=== PATIENT | male | born 1995 | race Caucasian/White ===

== ENCOUNTER 2019-04-07 10:46 | Observation (INO) ==
[~2019-04-07 10:46] MED LIST: NS 1,000 ML IV ONE
--- NOTE | 2019-04-07 10:57 | PROVIDER DOCUMENTATION ---
This chart was entered by Maribeth Bender Scribe, acting as scribe for Carl Jaime MD. [id number] Abuse/Overdose - General Chief Complaint: Overdose Stated Complaint: Overdose Time Seen by Provider: 04/07/19 10:33 Source: patient, EMS Allergies/Adverse Reactions: Allergies Allergy/AdvReac Type Severity Reaction Status Date / Time cephalexin monohydrate * Allergy Severe ANAPHYLAXIS Verified 08/29/13 21:33 [From Keflex] Penicillins Allergy Severe ANAPHYLAXIS Verified 08/29/13 21:32 Home Medications: Home Medication List Medication Instructions Recorded Confirmed Last Taken Type Azithromycin [Zithromax] 1 gm PO DAILY 08/29/13 08/29/13 08/29/13 07:00 History 1po - History of Present Illness-Drug/Alcohol Nature of Presenting Problem: 23 y/o male presents to the ED via EMS after overdose of Somonex, benadryl, and alcohol. EMS states the patient took approximately 40 Somonex which is an OTC sleep aid as well as unknown amount of Bendryl and drank approximately 1/2 pint of whiskey according to family but time of consumption is uncertain and the patient did write a note which which has tones of a suicide note. EMS states the patient was tachycardic and figity but not combative. The patient denies SI and states he simply could not sleep last night but then on further questioning states it was a combination of could not sleep and suicidal ideation. The patient is alert and oriented times three but confused easily. The patient does state he has a 2 year old child and is in a custody owusu. This episode of drinking or use began:: unsure Situational problems related to:: reports: other (custody owusu for child) Psychiatric Complaints: reports: insomnia, suicidal ideation. denies: homicidal thoughts Associated Symptoms: reports: other (dry mouth). denies: chest pain, diarrhea, dizziness, fever/chills, headaches, nausea, shortness of breath, vomiting Any injuries associated with this episode of intoxication?: No Similar Symptoms Previously?: No Recently seen or treated by another doctor?: No - Overdose Intentional drug overdose?: Yes List substance(s) ingested.: Somonex, benadryl, whiskey How did the ingestion/other suicidal act come to attention?: family called 911 Review of Systems - Adult - REVIEW OF SYSTEMS - ADULT Constitutional: denies: chills, fever, night sweats Eyes: reports: no symptoms reported Ears, Nose, Mouth & Throat: reports: no symptoms reported Cardiovascular: denies: chest pain, palpitations, syncope Respiratory: denies: hemoptysis, shortness of breath, wheezing Gastrointestinal: denies: diarrhea, nausea, vomiting Genitourinary: reports: no symptoms reported Musculoskeletal: reports: no symptoms reported Integumentary: reports: no symptoms reported Neurological: denies: dizziness/vertigo, headache/migraines, syncope Psychiatric: reports: insomnia, suicidal thoughts. denies: emotional problems Endocrine: reports: no symptoms reported Hematologic/Lymphatic: reports: no symptoms reported Allergic/Immunologic: reports: no symptoms reported All Other Systems: Reviewed and Negative Past History - Adult - PAST MEDICAL HISTORY-ADULT Review of Records: reports: Old Records Reviewed, Nursing Assessment Review, Medications Reviewed - IMMUNIZATION STATUS Childhood Immunizations: See Nurse Assessment Flu Vaccine: See Nurse Assessment - SOCIAL HISTORY Substance Use: alcohol Living Situation: family Physical Exam-General - PHYSICAL EXAM-ADULT Initial Vital Signs Reviewed: Yes - CONSTITUTIONAL General Appearance: alert - HEAD, EARS, NOSE, MOUTH & THROAT HENMT: normocephalic/atraumatic. negative: moist mucous membranes - NECK Neck: full range of motion, supple - RESPIRATORY Respiratory: lungs clear, normal breath sounds. negative: rales, rhonchi, wheezing - CARDIOVASCULAR Cardiovascular: no edema, no gallop, no murmur, tachycardia - GASTROINTESTINAL (ABDOMEN) Abdominal Exam: non tender, soft, other (midline surgical scar). negative: distended, guarding, rebound - MUSCULOSKELETAL Extremity: normal range of motion, non-tender, normal gait, no pedal edema, normal capillary refill. negative: pulse deficit - SKIN Integumentary: normal color, warm/dry - NEUROLOGIC Neurologic: grossly normal - PSYCHIATRIC Psych/Mental Status: oriented x 3 Progress - PLAN OF CARE/RESULTS Progress/Plan/Lab Results: Vital Signs - 8 hr 04/07/19 10:35 Temperature 97.8 F Pulse Rate 147 H Respiratory Rate 20 Blood Pressure 157/091 O2 Sat by Pulse Oximetry 97 Laboratory Results - last 24 hr 04/07/19 04/07/19 04/07/19 10:47 10:47 10:47 WBC 8.88 RBC 4.88 Hgb 15.3 Hct 43.2 MCV 88.5 MCH 31.4 H MCHC 35.4 RDW Std Deviation 12.8 Plt Count 289 MPV 10.2 Immature Gran % (Auto) 0.2 Neut % (Auto) 52.7 Lymph % (Auto) 32.9 [place] % (Auto) 12.0 H Eos % (Auto) 1.9 Baso % (Auto) 0.3 Immature Gran # (Auto) 0.02 Neut # (Auto) 4.67 Lymph # (Auto) 2.92 [place] # (Auto) 1.07 H Eos # (Auto) 0.17 Baso # (Auto) 0.03 Sodium 145 Potassium 3.4 L Chloride 104 Carbon Dioxide 23 L Anion Gap 18 BUN 5 L Creatinine 1.0 Estimated GFR/1.73 m2 > 60 BUN/Creatinine Ratio 5 Glucose 122 H Calculated Osmolality 287 Calcium 9.6 Total Bilirubin 0.40 AST 16 ALT 20 Alkaline Phosphatase 88 Total Protein 8.0 Albumin 5.0 Globulin 3.0 Albumin/Globulin Ratio 2.0 Vitamin B12 505 Salicylates < 3.00 L Acetaminophen < 1.2 L Plasma/Serum Ethyl Alc 04/07/19 10:47 WBC RBC Hgb Hct MCV MCH MCHC RDW Std Deviation Plt Count MPV Immature Gran % (Auto) Neut % (Auto) Lymph % (Auto) [place] % (Auto) Eos % (Auto) Baso % (Auto) Immature Gran # (Auto) Neut # (Auto) Lymph # (Auto) [place] # (Auto) Eos # (Auto) Baso # (Auto) Sodium Potassium Chloride Carbon Dioxide Anion Gap BUN Creatinine Estimated GFR/1.73 m2 BUN/Creatinine Ratio Glucose Calculated Osmolality Calcium Total Bilirubin AST ALT Alkaline Phosphatase Total Protein Albumin Globulin Albumin/Globulin Ratio Vitamin B12 Salicylates Acetaminophen Plasma/Serum Ethyl Alc 45 H Orders Category Date Time Status Cardiac Monitoring DIRECTED Care 04/07/19 10:42 Active Saline Loc NOW Care 04/07/19 10:43 Completed ACETAMINOPHEN [TDM] Stat Lab 04/07/19 10:47 Completed ALCOHOL BLOOD Stat Lab 04/07/19 10:47 Completed CBC WITH ELECTRONIC DIFF [HEME] Stat Lab 04/07/19 10:47 Completed COMPREHENSIVE METABOLIC PANEL [CHEM] Stat Lab 04/07/19 10:47 Completed FREE T4 Stat Lab 04/07/19 10:47 Results SALICYLATES [TDM] Stat Lab 04/07/19 10:47 Completed TSH Stat Lab 04/07/19 10:[address] W/POSS RFLX CULT [URINALYSIS] Stat Lab 04/07/19 10:40 Uncollected VITAMIN B12 Stat Lab 04/07/19 10:47 Results 0.9% Sodium Chloride Inj [Ns] 1,000 ml Med 04/07/19 10:46 Discontinued IV 999 mls/hr Pulse Oximetry Stat Oth 04/07/19 10:42 Active EKG [EKG] Stat Ther 04/07/19 10:42 Ordered Result Diagrams: 04/07/19 10:47 04/07/19 10:47 - EKG 1 Time of EKG reading by physician:: 11:06 EKG Read and Signed by:: Carl Jaime EKG Interpretation (*Must complete 3 of following elements*): Abnormal Rate: 124 Rhythm: sinus tachycardia Comments: nonspecific T wave abnormality Departure - Departure Date of Disposition Decision: 04/07/19 Time of Disposition Decision: 11:55 DIAGNOSIS: Suicide attempt Diphenhydramine overdose Qualifiers: Encounter type: initial encounter Injury intent: intentional self-harm Qualified Code(s): T45.0X2A - Poisoning by antiallergic and antiemetic drugs, intentional self-harm, initial encounter Disposition: ADMITTED INPATIENT 09 Certified Medical Emergency: Emergent Condition: Stable - Critical Care Note This patient required my direct & personal management of CC.: Yes Total Time (mins): 61 Critical Care Statement: This patient required my direct personal management to treat or rule out processes, the absence of which, could potentiallly result in sudden, clinically significant life or limb threatening deterioration. Attestation - Physician/ NICOLAS Attestation Patient care was provided by Advanced Practice Provider:: No The physician spent face to face time with patient:: Yes Advanced Practice Provider documentation review:: Supervising physician onsite and consulted in the evaluation and care of this patient. The physician did have a face to face encounter with the patient. This chart was documented by the indicated scribe, (Maribeth Bender, Marit[place]) and accurately reflects the services I performed and decisions made by me, Carl Jaime MD, as attested by the provider's signature.
[2019-04-07 11:06] LABS: BASO# 0.03 X1000 (0.0-0.2); BASO% 0.3 % (0.0-0.8); EOS# 0.17 X1000 (0.0-0.7); EOS% 1.9 % (0.0-10.0); HEMATOCRIT 43.2 % (42.0-52.0); HEMOGLOBIN 15.3 g/dL (14.0-18.0); IMM GRAN# 0.02 X1000 (0.0-0.04); IMM GRAN% 0.2 % (0.0-0.5); LYMPH# 2.92 X1000 (1.2-3.4); LYMPH% 32.9 % (20.5-51.1); MCH 31.4 PG (27-31); MCHC 35.4 g/dL (33-37); MCV 88.5 FL (81-99); MONO# 1.07 X1000 (0.11-0.59); MPV 10.2 FL (7.4-10.4); NEUT# 4.67 X1000 (1.4-6.5); NEUT% 52.7 % (42.2-75.2); PLT 289 X1000 (130-400); RBC 4.88 XMIL (4.7-6.1); RDW 12.8 % (11.5-14.5); WBC 8.88 X1000 (4.8-10.8)
[2019-04-07 11:30] LABS: ACETAMINOPHEN < 1.2 ug/mL (10-30); AGAP 18; ALKALINE PHOSPHATASE 88 U/L (32-122); BUN 5 mg/dL (8-22); CALCIUM 9.6 mg/dL (8.8-10.2); CHLORIDE 104 mmol/L (98-107); COSMO 287; ESTIMATED GFR > 60; GLUCOSE 122 mg/dL (70-104); GOT 16 U/L (10-34); GPT 20 U/L (10-44); POTASSIUM 3.4 mmol/L (3.5-5.1); SALICYLATES < 3.00 mg/dL (3-10); SODIUM 145 mmol/L (136-145); TCO2 23 mmol/L (25-35)
[2019-04-07 12:03] LABS: FREE T4 1.91 ng/dL (0.93-1.70); TSH 6.62 uIUmL (0.27-4.20)
--- NOTE | 2019-04-07 12:47 | EKG Report ---
Test Performed on : 04/07/2019 11:05:17 AM Test Reason : pain Blood Pressure : / mmHG Vent. Rate : 124 BPM Atrial Rate : 124 BPM P-R Int : 158 ms QRS Dur : 080 ms QT Int : 302 ms P-R-T Axes : 058 029 049 degrees QTc Int : 433 ms Sinus tachycardia. Nonspecific T wave abnormality Abnormal ECG No previous ECGs available Unconfirmed Result
[2019-04-07 13:32] LABS: BILIRUBIN URINE NEGATIVE (NEGATIVE); BLOOD URINE 2+ (NEGATIVE); CLARITY CLEAR (CLEAR); COLOR YELLOW; GLUCOSE URINE NEGATIVE (NEGATIVE); KETONE URINE NEGATIVE (NEGATIVE); LEUKOCYTES URINE NEGATIVE (NEGATIVE); NITRITE URINE NEGATIVE (NEGATIVE); PH URINE 6.5; PROTEIN URINE NEGATIVE (NEGATIVE); UROBILINOGEN URINE NORMAL
[2019-04-07 13:38] LABS: URINE BACTERIA 1+ /HFP; URINE EPITHELIAL CELLS <10 /HPF (<10); URINE RBC <10 /HPF (<10)
[2019-04-07 13:39] LABS: URINE SOURCE CLEAN CATCH
[2019-04-07 13:47] LABS: UR AMPHETAMINES QUAL NONE DETECTED (NONE DETECT); UR BARBITUATES QUAL PRESUMPTIVE POSITIVE (NONE DETECT); UR BENZODIAZEPIN QUAL NONE DETECTED (NONE DETECT); UR CANNABINOIDS QUAL NONE DETECTED (NONE DETECT); UR COCAINE QUAL NONE DETECTED (NONE DETECT); UR METHADONE QUAL NONE DETECTED (NONE DETECT); UR METHAMPHETAMINE QUAL NONE DETECTED (NONE DETECT); UR OPIATES QUAL NONE DETECTED (NONE DETECT); UR OXYCODONE QUAL NONE DETECTED (NONE DETECT); UR PCP QUAL NONE DETECTED (NONE DETECT); UR PROPOXYPHENE QUAL NONE DETECTED (NONE DETECT); UR TCA QUAL NONE DETECTED (NONE DETECT)
--- NOTE | 2019-04-07 17:08 | HISTORY AND PHYSICAL ---
CHIEF COMPLAINT: Suicide attempt overdose. HISTORY OF PRESENT ILLNESS: Patient is a 23-year-old male who presented to the emergency department after having an overdose with [*]Benadryl and probably alcohol. Patient unfortunately did write a suicide note. He is undergoing a custody owusu and divorce. The patient apparently in the ER at one point had denied suicide intent, although his note would suggest otherwise. ALLERGIES: Penicillin. MEDICATIONS: No prescription medications. PAST MEDICAL HISTORY: He has no chronic active medical problems. SOCIAL HISTORY: Patient does drink. Does not smoke or use other illicit substances. REVIEW OF SYSTEMS: Unobtainable on my exam due to patient is confused, frequently answering questions that were not asked. FAMILY HISTORY: Noncontributory. PHYSICAL EXAMINATION: VITAL SIGNS: Reviewed. GENERAL: Patient is awake and alert. However, he is disoriented, likely due to the substances that he took. He is in no respiratory distress. HEENT: Normocephalic. NECK: Supple. CARDIOVASCULAR: Regular rate. No murmurs. CHEST: Clear and nonlabored. ABDOMEN: Soft and nondistended. EXTREMITIES: Moves all extremities. NEUROLOGIC: No obvious focal deficits although patient is confused and disoriented, does not follow commands. VITAL SIGNS: Currently, blood pressure is elevated at 157/91, temperature 97 degrees, pulse 140s and respiratory 20. ASSESSMENT: 1. Supraventricular tachycardia. 2. Hypertension. 3. Intentional drug overdose with likely suicide implications. 4. Hyperglycemia. 5. Hypokalemia. PLAN: We will continue patient in the hospital, and place him in the ICU. We will follow poison control's recommendations. Further orders as needed. cc: Jeffrey Emery MD
[2019-04-07] MEDS: NICODERM PATCH TD PRN (21:01)
[2019-04-08 05:41] LABS: HEMATOCRIT 38.9 % (42.0-52.0); HEMOGLOBIN 13.1 g/dL (14.0-18.0); MCH 30.8 PG (27-31); MCHC 33.7 g/dL (33-37); MCV 91.5 FL (81-99); MPV 10.3 FL (7.4-10.4); RBC 4.25 XMIL (4.7-6.1); WBC 7.52 X1000 (4.8-10.8)
[2019-04-08 06:07] LABS: AGAP 10; ALBUMIN 3.9 g/dL (3.5-5.0); ALKALINE PHOSPHATASE 73 U/L (32-122); BUN 8 mg/dL (8-22); CALCIUM 8.6 mg/dL (8.8-10.2); CHLORIDE 103 mmol/L (98-107); COSMO 277; CREATININE 0.9 mg/dL (0.7-1.2); ESTIMATED GFR > 60; GLUCOSE 88 mg/dL (70-104); GOT 15 U/L (10-34); GPT 18 U/L (10-44); MAGNESIUM 1.7 mg/dL (1.5-2.7); POTASSIUM 3.6 mmol/L (3.5-5.1); SODIUM 140 mmol/L (136-145); TCO2 27 mmol/L (25-35); TOTAL PROTEIN 6.6 g/dL (6.3-8.3)
[2019-04-08] MEDS: NICODERM PATCH TD PRN (10:53)
--- NOTE | 2019-04-08 11:12 | EKG Report ---
Test Performed on : 04/08/2019 07:20:24 AM Test Reason : STAT Blood Pressure : / mmHG Vent. Rate : 061 BPM Atrial Rate : 061 BPM P-R Int : 156 ms QRS Dur : 090 ms QT Int : 398 ms P-R-T Axes : -22 076 073 degrees QTc Int : 400 ms Normal sinus rhythm. with sinus arrhythmia. Normal ECG When compared with ECG of 07-APR-2019 11:05, (Unconfirmed) Vent. rate has decreased BY [address] elevation now present in Lateral leads Nonspecific T wave abnormality no longer evident in Inferior leads Nonspecific T wave abnormality no longer evident in Lateral leads Unconfirmed Result
[2019-04-08 12:15] VITALS: BP 104/54
--- NOTE | 2019-04-08 19:25 | PROGRESS NOTE ---
DATE: 04/08/2019 SUBJECTIVE: Patient states that he is feeling better. He denies any current suicidal intentions, although seems reluctant to state that he will not do that again. PHYSICAL EXAMINATION: Vital Signs: Temp 97.5, pulse 65, respiratory rate 18, BP 102/56. General: Patient is awake, alert, currently in no distress. He is pleasant. He is much more oriented than he was on admission. HEENT: Normocephalic. Neck: Supple. Cardiovascular: Regular rate. Chest: Clear. Abdomen: Soft, nondistended. Extremities: Moves all extremities. ASSESSMENT: 1. Supraventricular tachycardia, resolved. 2. Hypertension, resolved. 3. Intentional drug overdose. All of his symptoms appear to have resolved. 4. Hypokalemia, resolved. 5. Hypertension, resolved. PLAN: We will continue patient in the hospital until he is cleared medically by [facility]. I certainly feel as though Mr. Olivia needs to be transferred to [facility] given that he had written what appears to be a suicide note and his stressors have not actually changed. cc: Jeffrey Emery MD
--- NOTE | 2019-04-08 19:30 | DISCHARGE SUMMARY ---
ADMISSION DATE: 04/07/2019 DISCHARGE DATE: 04/08/2019 DIAGNOSES: 1. Supraventricular tachycardia resolved. 2. Hypertension. 3. Intentional drug overdose with likely suicide implications. 4. Hyperglycemia. 5. Hypokalemia. HOSPITAL COURSE: Mr. Olivia presented to the emergency room after having an overdose with Benadryl and probably alcohol. He also wrote a suicide note. He was admitted to ICU and monitored. Thankfully he had no complications. We did follow poison control's recommendations. Once medically cleared he was evaluated by [facility] who felt that the patient did meet criteria for inpatient care. A bed was found at [facility] and the patient was discharged at [facility] and the patient left with [facility] approximately 3:40 in stable condition. DISCHARGE MEDICATIONS: The patient had p.r.n. orders for hydroxyzine 25 mg p.o. t.i.d. anxiety, Motrin 600 mg p.o. q.6 hours p.r.n., milk of magnesia 30 mL p.o. p.r.n. constipation, a NicoDerm patch 21 mg transdermal daily, trazodone 50 mg p.o. at bedtime p.r.n. sleep, Maalox Plus liquid 30 mL p.o. q.3 hours p.r.n. indigestion, clonidine 0.1 mg p.o. q.4 hours p.r.n. systolic blood pressure greater than 170 or diastolic blood pressure greater than 105 both pressures being manual. [*]in stable condition with family members present. He is being discharged in transfer to [facility] in stable condition. TIME SPENT: Greater than 30 minutes . Dictated by KAHTRYN Bruce for Jeffrey Emery MD cc: KATHRYN Bruce MD
--- NOTE | 2019-04-09 05:53 | DISCHARGE SUMMARY ---
ADMISSION DATE: 04/07/2019 DISCHARGE DATE: 04/08/2019 DISCHARGE DIAGNOSIS: 1. Supraventricular tachycardia, resolved. 2. Hypertension, resolved. 3. Intentional drug overdose with multiple substances. 4. Hyperglycemia, resolved. 5. Hypokalemia, resolved. CONSULTATIONS: [facility]. PROCEDURES: None. BRIEF HOSPITAL COURSE: The patient is a 23-year-old male who unfortunately is stressed over undergoing a divorce. We have admitted him to the hospital, placed him in the ICU. He currently is awake, alert, oriented. All of his withdrawal symptoms have resolved and therefore we will transfer him to [facility]. DISPOSITION: Patient will be transferred to [facility]. Further planning per them. cc: Jeffrey Emery MD
== END 2019-04-08 16:33 ==
LOC: P.ED 10:46 → INTOOBSV 13:46 → P.ICU 13:46
PROVIDERS: ATTEND Family Medicine
CPT/HCPCS: 80053; 80104; 80196; 80301; 80305; 80307; 80320; 80324; 80329; 81001; 82003; 82055; 82607; 83735; 84439; 84443; 85025; 85027; 93005; A9270; G0431; G0434; G0477; G0480; G6038; G6039; G6040; J7030